=== PATIENT | female | born 1945 | race Caucasian/White ===

== ENCOUNTER 2020-05-26 13:49 | Inpatient (IN) ==
[2020-05-26] MEDS ORDERED: 0.9 % Sodium Chloride 500 ML IVC ONE (14:03)
[2020-05-26] MEDS ORDERED: Pantoprazole 40 MG VIAL IVP ONE (14:03)
[2020-05-26] MEDS ORDERED: Tetracaine/Benzocaine/Butamben 1 SPRAY AEROSOL MM ONE (14:10)
[2020-05-26 15:44] LABS: Basophils # 0.1 K/mcL (0.0-0.2); Basophils % 0.4 %; Eosinophils # 0.1 K/mcL (0.0-0.6); Eosinophils % 0.6 %; Hematocrit 43.6 % (35.3-44.9); Hemoglobin 14.7 g/dL (11.5-15.4); Immature Granulocytes % 0.3 % (0-4); Lymphocytes # 1.4 K/mcL (0.6-4.6); Lymphocytes % 11.6 %; Mean Corpuscular HGB Conc 33.7 g/dL (31.6-35.5); Mean Corpuscular Hemoglobin 32.5 pg (28.0-33.3); Mean Corpuscular Volume 96.2 fL (83.0-100.0); Monocytes # 0.9 K/mcL (0.0-1.3); Monocytes % 7.6 %; Neutrophils # 9.5 K/mcL (1.6-8.9); Platelet Count 284 K/mcL (140-400); Red Blood Count 4.53 M/mcL (3.82-4.97); Red Cell Distribution Width 12.3 % (11.5-14.5); Segmented Neutrophils % 79.5 %; White Blood Count 11.9 K/mcL (4.3-11.1)
[2020-05-26 16:02] LABS: Prothrombin Time 11.8 Seconds (9.4-12.1)
[2020-05-26 16:04] LABS: Alanine Aminotransferase 13 Units/L (7-52); Albumin 4.9 g/dL (3.5-5.7); Albumin/Globulin Ratio 1.8 (1.1-2.2); Alkaline Phosphatase 89 Units/L (34-104); Aspartate Amino Transferase 24 Units/L (13-39); BUN/Creatinine Ratio 17 (6-26); Bilirubin,Total 0.8 mg/dL (0.3-1.0); Blood Urea Nitrogen 11 mg/dL (8-23); Calcium 9.9 mg/dL (8.6-10.3); Carbon Dioxide 30 mEq/L (23-29); Chloride 98 mEq/L (98-107); Globulin 2.8 g/dL (2.4-3.5); Glucose 92 mg/dL (70-105); Osmolality,Calculated 283 (280-300); Potassium 3.6 mEq/L (3.5-5.1); Sodium 137 mEq/L (136-145); Total Protein 7.7 g/dL (6.4-8.9); eGFR For African Americans > 60 (> 60); eGFR For Non-African Americans > 60 (> 60)
[2020-05-26] MEDS ORDERED: Acetaminophen 325 MG TABLET PO PRN (17:52)
[2020-05-26] MEDS ORDERED: Ondansetron 4 MG/2 ML VIAL IVP PRN (17:52)
[2020-05-26] MEDS ORDERED: Ampicillin/Sulbactam 3,000 MG in 0.9 % Sodium Chloride Mini Bag 100 ML IVPB ONE (18:33)
[2020-05-26 19:46] LABS: Adenovirus Not Detected (Not Detect); Bordetella Pertussis Not Detected (Not Detect); Chlamydophila pneumoniae Not Detected (Not Detect); Coronavirus 229E Not Detected (Not Detect); Coronavirus HKU1 Not Detected (Not Detect); Coronavirus NL63 Not Detected (Not Detect); Coronavirus OC43 Not Detected (Not Detect); Human Metapneumovirus Not Detected (Not Detect); Human Rhinovirus/Enterovirus Not Detected (Not Detect); Influenza A Subtype 2009 H1 Not Detected (Not Detect); Influenza B Not Detected (Not Detect); Mycoplasma pneumoniae Not Detected (Not Detect); Parainfluenza Virus 1 Not Detected (Not Detect); Parainfluenza Virus 2 Not Detected (Not Detect); Parainfluenza Virus 3 Not Detected (Not Detect); Parainfluenza Virus 4 Not Detected (Not Detect); Respiratory Syncytial Virus Not Detected (Not Detect); SARS-CoV-2 Not Detected (Not Detect)
[2020-05-26 20:01] LABS: C-Reactive Protein 11 mg/L (Less than 10); Lactate Dehydrogenase 196 Units/L (140-271)
[2020-05-26] MEDS ORDERED: Isovue-370 500 ML BOTTLE IVP ONE ×2 (20:53→21:08)
[2020-05-26 21:53] LABS: Hematocrit 37.4 % (35.3-44.9)
[2020-05-26 21:54] LABS: Hemoglobin 12.6 g/dL (11.5-15.4)
[2020-05-26] MEDS ORDERED: Chloraseptic Spray 177 ML BOTTLE MM PRN (22:11)
[2020-05-27] MEDS ORDERED: Ampicillin/Sulbactam 3,000 MG in 0.9 % Sodium Chloride Mini Bag 100 ML IVPB SCH
[2020-05-27] MEDS: Ampicillin/Sulbactam 3,000 MG in 0.9 % Sodium Chloride Mini Bag 100 ML IVPB SCH ×4 (04:04→23:39)
[2020-05-27 04:30] LABS: Hematocrit 35.4 % (35.3-44.9); Hemoglobin 12.1 g/dL (11.5-15.4); Mean Corpuscular HGB Conc 34.2 g/dL (31.6-35.5); Mean Corpuscular Hemoglobin 31.9 pg (28.0-33.3); Mean Corpuscular Volume 93.4 fL (83.0-100.0); Mean Platelet Volume 9.2 fL (9.4-12.4); Platelet Count 254 K/mcL (140-400); Red Blood Count 3.79 M/mcL (3.82-4.97); Red Cell Distribution Width 12.5 % (11.5-14.5)
[2020-05-27 04:36] LABS: INR 1.3; Prothrombin Time 14.6 Seconds (9.4-12.1)
[2020-05-27 04:53] LABS: BUN/Creatinine Ratio 25 (6-26); Blood Urea Nitrogen 12 mg/dL (8-23); Calcium 8.5 mg/dL (8.6-10.3); Carbon Dioxide 26 mEq/L (23-29); Chloride 103 mEq/L (98-107); Glucose 105 mg/dL (70-105); Magnesium 1.9 mg/dL (1.6-2.6); Osmolality,Calculated 284 (280-300); Phosphorous 3.2 mg/dL (2.7-4.5); Potassium 3.4 mEq/L (3.5-5.1); Sodium 137 mEq/L (136-145); eGFR For African Americans > 60 (> 60); eGFR For Non-African Americans > 60 (> 60)
[2020-05-27] MEDS ORDERED: Potassium Chloride 20 MEQ, Lidocaine 1% 2 ML in 0.9 % Sodium Chloride 250 ML IVPB ONE (09:01)
[2020-05-27 09:53] LABS: Bilirubin,Urine Negative (Negative); Blood,Urine Moderate (Negative); Clarity,Urine Clear (Clear); Color,Urine Light-Yellow (Yellow); Glucose,Urine (UA) Normal (Normal); Ketones,Urine 20 mg/dL (Negative); Leukocyte Esterase,Urine Small (Negative); Mucus,Urine Few per lpf (None-Few); Nitrite,Urine Negative (Negative); PH,Urine 6.5 pH Units (5.0-8.0); Protein,Urine Trace mg/dL (Neg-Trace); Specific Gravity,Urine > 1.030 (1.010-1.025); Squamous Epithelial Cell,Urine Few per hpf (None-Few); Urobilinogen,Urine Normal (Normal); WBC,Urine 0-3 per hpf (0-3)
[2020-05-27] MEDS ORDERED: Lidocaine -MPF 2% 5 ML VIAL SQ ONE (13:15)
[2020-05-27] MEDS ORDERED: *HR* Propofol 200 MG/20 ML VIAL IVP ONE (13:15)
[2020-05-27] MEDS ORDERED: *HR* Propofol 500 MG/50 ML BOTTLE IVP ONE (13:15)
[2020-05-27] MEDS ORDERED: *HR* Rocuronium Bromide 50 MG/5 ML VIAL IVP ONE (13:15)
[2020-05-27] MEDS ORDERED: *HR* Succinylcholine 200 MG/10 ML VIAL IVP ONE (13:15)
[2020-05-27] MEDS ORDERED: *HR* FentaNYL (PF) 100 MCG/2 ML VIAL ONE (13:30)
[2020-05-27] MEDS ORDERED: *HR* Promethazine 25 MG/ML VIAL IVP PRN (13:35)
[2020-05-27] MEDS ORDERED: Albuterol 2.5 MG/3 ML NEBULIZER IH PRN (13:35)
[2020-05-27] MEDS ORDERED: Ondansetron 4 MG/2 ML VIAL IVP PRN (13:35)
[2020-05-27] MEDS ORDERED: *HR* FentaNYL (PF) 100 MCG/2 ML VIAL IVP PRN (13:35)
[2020-05-27] MEDS ORDERED: *HR* EPINEPHrine 1 MG/10 ML SYRINGE INTRATRACH PRN (14:10)
[2020-05-27 16:32] LABS: Hematocrit 38.7 % (35.3-44.9); Hemoglobin 12.4 g/dL (11.5-15.4)
[2020-05-27] MEDS: MethylPREDNISolone 40 MG/ML VIAL IVP SCH ×2 (17:11→17:15)
[2020-05-27] MEDS ORDERED: MethylPREDNISolone 40 MG/ML VIAL IVP SCH (18:00)
[2020-05-27 22:53] LABS: Hematocrit 38.8 % (35.3-44.9); Hemoglobin 13.2 g/dL (11.5-15.4)
[2020-05-28 01:13] LABS: Basophils % 0.3 %; Hematocrit 37.4 % (35.3-44.9); Hemoglobin 12.3 g/dL (11.5-15.4); Immature Granulocytes % 0.8 % (0-4); Lymphocytes # 0.9 K/mcL (0.6-4.6); Lymphocytes % 13.6 %; Mean Corpuscular HGB Conc 32.9 g/dL (31.6-35.5); Mean Corpuscular Hemoglobin 31.4 pg (28.0-33.3); Mean Corpuscular Volume 95.4 fL (83.0-100.0); Mean Platelet Volume 9.2 fL (9.4-12.4); Monocytes # 0.1 K/mcL (0.0-1.3); Monocytes % 0.9 %; Neutrophils # 5.6 K/mcL (1.6-8.9); Platelet Count 228 K/mcL (140-400); Red Blood Count 3.92 M/mcL (3.82-4.97); Red Cell Distribution Width 12.3 % (11.5-14.5); Segmented Neutrophils % 84.4 %; White Blood Count 6.6 K/mcL (4.3-11.1)
[2020-05-28 01:38] LABS: BUN/Creatinine Ratio 33 (6-26); Blood Urea Nitrogen 14 mg/dL (8-23); Calcium 8.6 mg/dL (8.6-10.3); Carbon Dioxide 27 mEq/L (23-29); Chloride 103 mEq/L (98-107); Glucose 141 mg/dL (70-105); Osmolality,Calculated 287 (280-300); Potassium 3.5 mEq/L (3.5-5.1); Sodium 137 mEq/L (136-145); eGFR For African Americans > 60 (> 60); eGFR For Non-African Americans > 60 (> 60)
[2020-05-28] MEDS: MethylPREDNISolone 40 MG/ML VIAL IVP SCH ×2 (05:26→16:25)
[2020-05-28] MEDS: Ampicillin/Sulbactam 3,000 MG in 0.9 % Sodium Chloride Mini Bag 100 ML IVPB SCH ×4 (05:27→21:38)
[2020-05-28] MEDS ORDERED: Aspirin Enteric Coated 81 MG Tablet PO SCH (09:00)
[2020-05-28] MEDS ORDERED: Dexamethasone 4 MG/ML VIAL ONE (10:26)
[2020-05-28] MEDS ORDERED: Lidocaine -MPF 2% 2 ML VIAL ONE (10:26)
[2020-05-28] MEDS ORDERED: Ondansetron 4 MG/2 ML VIAL ONE (10:26)
[2020-05-28] MEDS ORDERED: *HR* Propofol 200 MG/20 ML VIAL IVP ONE (10:26)
[2020-05-28] MEDS ORDERED: *HR* Succinylcholine 200 MG/10 ML VIAL IVP ONE (10:27)
[2020-05-28] MEDS ORDERED: Lidocaine -MPF 4% 5 ML AMPUL ONE (10:28)
[2020-05-28] MEDS ORDERED: *HR* EPINEPHrine 1 MG/10 ML SYRINGE INTRATRACH PRN (10:53)
[2020-05-28] MEDS ORDERED: EPHEDrine 50 MG/ML VIAL ONE (11:02)
[2020-05-28] MEDS: Budesonide/Formoterol 80/4.5 1 PUFF INH IH SCH ×2 (11:31→19:59)
[2020-05-28] MEDS: Ascorbic Acid 500 MG TABLET PO SCH (13:04)
[2020-05-28] MEDS: amLODIPine 5 MG TABLET PO SCH (13:04)
[2020-05-29 01:37] LABS: Basophils % 0.1 %; Hematocrit 35.6 % (35.3-44.9); Hemoglobin 11.6 g/dL (11.5-15.4); Immature Granulocytes % 0.8 % (0-4); Lymphocytes # 0.9 K/mcL (0.6-4.6); Lymphocytes % 7.5 %; Mean Corpuscular HGB Conc 32.6 g/dL (31.6-35.5); Mean Corpuscular Hemoglobin 31.4 pg (28.0-33.3); Mean Corpuscular Volume 96.5 fL (83.0-100.0); Mean Platelet Volume 9.6 fL (9.4-12.4); Monocytes # 0.5 K/mcL (0.0-1.3); Monocytes % 3.9 %; Neutrophils # 10.4 K/mcL (1.6-8.9); Platelet Count 252 K/mcL (140-400); Red Blood Count 3.69 M/mcL (3.82-4.97); Red Cell Distribution Width 12.3 % (11.5-14.5); Segmented Neutrophils % 87.7 %
[2020-05-29 01:38] LABS: White Blood Count 11.8 K/mcL (4.3-11.1)
[2020-05-29 01:55] LABS: BUN/Creatinine Ratio 43 (6-26); Blood Urea Nitrogen 23 mg/dL (8-23); Calcium 8.7 mg/dL (8.6-10.3); Carbon Dioxide 27 mEq/L (23-29); Chloride 102 mEq/L (98-107); Glucose 149 mg/dL (70-105); Osmolality,Calculated 288 (280-300); Potassium 3.6 mEq/L (3.5-5.1); Sodium 136 mEq/L (136-145); eGFR For African Americans > 60 (> 60); eGFR For Non-African Americans > 60 (> 60)
[2020-05-29] MEDS: MethylPREDNISolone 40 MG/ML VIAL IVP SCH ×2 (05:14→19:44)
[2020-05-29] MEDS: Ampicillin/Sulbactam 3,000 MG in 0.9 % Sodium Chloride Mini Bag 100 ML IVPB SCH ×4 (05:14→21:36)
[2020-05-29] MEDS: Budesonide/Formoterol 80/4.5 1 PUFF INH IH SCH ×2 (07:37→20:14)
[2020-05-29] MEDS: Ascorbic Acid 500 MG TABLET PO SCH (08:37)
[2020-05-29] MEDS: amLODIPine 5 MG TABLET PO SCH (08:37)
[2020-05-30] MEDS: Ampicillin/Sulbactam 3,000 MG in 0.9 % Sodium Chloride Mini Bag 100 ML IVPB SCH (03:42)
[2020-05-30 05:35] LABS: Hemoglobin 11.9 g/dL (11.5-15.4); Immature Granulocytes % 0.8 % (0-4); Lymphocytes # 0.8 K/mcL (0.6-4.6); Lymphocytes % 8.9 %; Mean Corpuscular Hemoglobin 32.4 pg (28.0-33.3); Mean Corpuscular Volume 95.4 fL (83.0-100.0); Mean Platelet Volume 9.4 fL (9.4-12.4); Monocytes # 0.3 K/mcL (0.0-1.3); Monocytes % 4.1 %; Neutrophils # 7.2 K/mcL (1.6-8.9); Platelet Count 261 K/mcL (140-400); Red Blood Count 3.67 M/mcL (3.82-4.97); Red Cell Distribution Width 12.4 % (11.5-14.5); Segmented Neutrophils % 86.2 %; White Blood Count 8.4 K/mcL (4.3-11.1)
[2020-05-30 05:53] LABS: BUN/Creatinine Ratio 39 (6-26); Blood Urea Nitrogen 19 mg/dL (8-23); Calcium 8.3 mg/dL (8.6-10.3); Carbon Dioxide 29 mEq/L (23-29); Chloride 105 mEq/L (98-107); Glucose 139 mg/dL (70-105); Osmolality,Calculated 295 (280-300); Potassium 3.5 mEq/L (3.5-5.1); Sodium 140 mEq/L (136-145); eGFR For African Americans > 60 (> 60); eGFR For Non-African Americans > 60 (> 60)
[2020-05-30] MEDS: MethylPREDNISolone 40 MG/ML VIAL IVP SCH (06:02)
[2020-05-30] MEDS: Budesonide/Formoterol 80/4.5 1 PUFF INH IH SCH (07:11)
[2020-05-30] MEDS: amLODIPine 5 MG TABLET PO SCH (08:28)
[2020-05-30] MEDS: Ascorbic Acid 500 MG TABLET PO SCH (08:28)
[2020-05-30 09:14] LABS: ANA HEp-2 IgG IFA DETECTED (<1:80)
[2020-05-30 09:15] LABS: Anti Nuclear Ab Pattern SPECKLED
[2020-05-30 10:56] VITALS: BP 123/72
[2020-05-30] MEDS ORDERED: FLU Vac QV 20-21 (6Month+)/PF 0.5 ML SYRINGE IM ONE (12:10)
[2020-05-30 14:26] LABS: ANA IgG by ELISA DETECTED (None Detected)
[2020-05-30 14:39] LABS: Serine Protease-3 Antibody 1 AU/mL (0-19)
[2020-05-30 16:04] LABS: Influenza A PCR Body Fluid NOT DETECTED; Influenza B PCR Body Fluid NOT DETECTED; RVP Body Fluid Source BAL
[2020-05-30 17:53] LABS: Influenza A PCR Body Fluid NOT DETECTED; Influenza B PCR Body Fluid NOT DETECTED; RVP Body Fluid Source BAL
[2020-05-30 18:59] LABS: A.galactomannan Ag Index 0.05
[2020-05-31 08:09] LABS: RSV PCR Body Fluid NOT DETECTED
[2020-06-02 13:30] LABS: HSV Source BAL LLL; HSV Source BAL LUL
== END 2020-05-30 13:16 | disposition home or self-care (01) | DRG 204 ==
LOC: EMEROOARM 13:49 → 3ANU 13:49 → SUATTDRO 19:50 → 3ANU 20:32 → 2NNU 05-27 14:47 → 3ANU 05-29 13:47 → 3BNU 05-29 18:28 → 3ANU 05-29 18:37
PROVIDERS: ADMIT Internal Medicine; ATTEND Student in an Organized Health Care Education/Training Program
PROC: ENDOBRF (2020-05-28 18:30)

== ENCOUNTER 2020-06-04 08:15 | Inpatient (IN) ==
[2020-06-04] MEDS ORDERED: CeFAZolin Syr 2,000MG/20 ML 2,000 MG/20 ML SYRINGE IVPB ONE (08:59)
[2020-06-04] MEDS ORDERED: Ringers Solution, Lactated 1,000 ML IVC SCH (09:00)
[2020-06-04] MEDS ORDERED: Acetaminophen IV 1,000 MG/100 ML INFUS..BTL IVPB ONE (09:13)
[2020-06-04] MEDS ORDERED: Pregabalin 75 MG CAPSULE PO ONE (09:13)
[2020-06-04] MEDS ORDERED: Famotidine 20 MG/2 ML VIAL IVP ONE (09:13)
[2020-06-04] MEDS ORDERED: Albuterol 2.5 MG/3 ML NEBULIZER IH PRN (09:13)
[2020-06-04] MEDS ORDERED: *HR* Promethazine 25 MG/ML VIAL IVP PRN (09:13)
[2020-06-04] MEDS ORDERED: *HR* FentaNYL (PF) 100 MCG/2 ML VIAL IVP PRN (09:13)
[2020-06-04] MEDS ORDERED: Ketorolac 15 MG/ML VIAL IVP PRN (09:13)
[2020-06-04] MEDS ORDERED: *HR* OxyCODONE Immed Rel 5 MG TABLET PO PRN (09:13)
[2020-06-04] MEDS ORDERED: Ondansetron 4 MG/2 ML VIAL IVP PRN (09:13)
[2020-06-04] MEDS ORDERED: Lidocaine -MPF 4% 5 ML AMPUL ONE (10:02)
[2020-06-04] MEDS ORDERED: Heparin 1,000 UNITS/500 mL 500 ML ONE (10:04)
[2020-06-04] MEDS ORDERED: *HR* Propofol 200 MG/20 ML VIAL IVP ONE (10:05)
[2020-06-04] MEDS ORDERED: *HR* FentaNYL (PF) 100 MCG/2 ML VIAL ONE (10:05)
[2020-06-04] MEDS ORDERED: Dexamethasone 4 MG/ML VIAL ONE (10:06)
[2020-06-04] MEDS ORDERED: *HR* Rocuronium Bromide 50 MG/5 ML VIAL ONE ×2 (10:06→12:15)
[2020-06-04] MEDS ORDERED: Ondansetron 4 MG/2 ML VIAL ONE (10:06)
[2020-06-04] MEDS ORDERED: Lidocaine -MPF 2% 2 ML VIAL ONE ×2 (10:06→10:39)
[2020-06-04 10:16] LABS: Adenovirus Not Detected (Not Detect); Bordetella Pertussis Not Detected (Not Detect); Chlamydophila pneumoniae Not Detected (Not Detect); Coronavirus 229E Not Detected (Not Detect); Coronavirus HKU1 Not Detected (Not Detect); Coronavirus NL63 Not Detected (Not Detect); Coronavirus OC43 Not Detected (Not Detect); Human Metapneumovirus Not Detected (Not Detect); Human Rhinovirus/Enterovirus Not Detected (Not Detect); Influenza A Subtype 2009 H1 Not Detected (Not Detect); Influenza B Not Detected (Not Detect); Mycoplasma pneumoniae Not Detected (Not Detect); Parainfluenza Virus 1 Not Detected (Not Detect); Parainfluenza Virus 2 Not Detected (Not Detect); Parainfluenza Virus 3 Not Detected (Not Detect); Parainfluenza Virus 4 Not Detected (Not Detect); Respiratory Syncytial Virus Not Detected (Not Detect); SARS-CoV-2 Not Detected (Not Detect)
[2020-06-04] MEDS ORDERED: *HR* EPINEPHrine 30 MG/30 ML MDV ONE (10:44)
[2020-06-04] MEDS ORDERED: *HR* HYDROMORPHONE 2 MG/ML VIAL ONE (11:53)
[2020-06-04] MEDS ORDERED: *HR* PHENYLEPHRINE 1,000 MCG/10 ML SYRINGE IVP ONE (12:35)
[2020-06-04] MEDS ORDERED: EPHEDrine 50 MG/ML VIAL ONE (12:38)
[2020-06-04] MEDS ORDERED: FluocinoNIDE 0.05% CRM 15 GM TUBE TP PRN (14:13)
[2020-06-04] MEDS ORDERED: Naloxone 0.4 MG/ML INJ IVP PRN (14:13)
[2020-06-04] MEDS ORDERED: 0.9 % Sodium Chloride 1,000 ML ONE (14:19)
[2020-06-04] MEDS: 0.9 % Sodium Chloride 1,000 ML IVC SCH (14:20)
[2020-06-04] MEDS: Ipratropium/Albuterol Neb 3 ML IH SCH ×3 (15:36→23:58)
[2020-06-04] MEDS: *HR* Heparin 5,000 UNIT/ML VIAL SQ SCH ×2 (18:21→21:51)
[2020-06-04] MEDS: Ketorolac 15 MG/ML VIAL IVP SCH (18:21)
[2020-06-04] MEDS: Gabapentin 300 MG CAPSULE PO SCH ×2 (18:21→21:51)
[2020-06-04] MEDS: Sennosides/Docusate Sodium TABLET PO SCH (21:51)
[2020-06-04] MEDS: Famotidine 20 MG TABLET PO SCH (21:51)
[2020-06-05] MEDS: *HR* HYDROcodone/Acet 5/325 mg TABLET PO PRN (00:37)
[2020-06-05] MEDS: Ketorolac 15 MG/ML VIAL IVP SCH ×4 (00:37→16:43)
[2020-06-05] MEDS: 0.9 % Sodium Chloride 1,000 ML IVC SCH (03:03)
[2020-06-05] MEDS: Ipratropium/Albuterol Neb 3 ML IH SCH ×6 (03:50→23:49)
[2020-06-05 05:02] LABS: Hematocrit 35.7 % (35.3-44.9); Hemoglobin 11.4 g/dL (11.5-15.4); Mean Corpuscular HGB Conc 31.9 g/dL (31.6-35.5); Mean Corpuscular Hemoglobin 31.7 pg (28.0-33.3); Mean Corpuscular Volume 99.2 fL (83.0-100.0); Mean Platelet Volume 9.2 fL (9.4-12.4); Platelet Count 287 K/mcL (140-400); Red Cell Distribution Width 12.8 % (11.5-14.5)
[2020-06-05 05:03] LABS: White Blood Count 14.4 K/mcL (4.3-11.1)
[2020-06-05 05:11] LABS: % Iron Saturation 6 % (15-50); BUN/Creatinine Ratio 28 (6-26); Blood Urea Nitrogen 15 mg/dL (8-23); Calcium 7.8 mg/dL (8.6-10.3); Carbon Dioxide 29 mEq/L (23-29); Chloride 103 mEq/L (98-107); Glucose 164 mg/dL (70-105); Iron 13 mcg/dL (50-170); Magnesium 1.9 mg/dL (1.6-2.6); Osmolality,Calculated 290 (280-300); Potassium 4.3 mEq/L (3.5-5.1); Sodium 138 mEq/L (136-145); Transferrin 146 mg/dL (203-362); eGFR For African Americans > 60 (> 60); eGFR For Non-African Americans > 60 (> 60)
[2020-06-05] MEDS: *HR* Heparin 5,000 UNIT/ML VIAL SQ SCH ×3 (06:34→20:39)
[2020-06-05] MEDS: Budesonide/Formoterol 80/4.5 1 PUFF INH IH SCH ×2 (07:40→19:26)
[2020-06-05] MEDS: Aspirin Enteric Coated 81 MG Tablet PO SCH (07:49)
[2020-06-05] MEDS: Gabapentin 300 MG CAPSULE PO SCH ×3 (07:49→20:39)
[2020-06-05] MEDS: Sennosides/Docusate Sodium TABLET PO SCH ×2 (07:49→20:39)
[2020-06-05] MEDS: amLODIPine 5 MG TABLET PO SCH (07:49)
[2020-06-05] MEDS: Famotidine 20 MG TABLET PO SCH ×2 (07:49→20:39)
[2020-06-05] MEDS ORDERED: Iron Sucrose Complex 400 MG in 0.9 % Sodium Chloride 250 ML IVPB ONE (10:19)
[2020-06-06] MEDS: Ketorolac 15 MG/ML VIAL IVP SCH ×4 (01:15→16:27)
[2020-06-06] MEDS: Ipratropium/Albuterol Neb 3 ML IH SCH ×5 (04:14→20:10)
[2020-06-06] MEDS: *HR* Heparin 5,000 UNIT/ML VIAL SQ SCH ×3 (05:09→19:54)
[2020-06-06] MEDS: Budesonide/Formoterol 80/4.5 1 PUFF INH IH SCH ×2 (07:33→22:13)
[2020-06-06] MEDS: amLODIPine 5 MG TABLET PO SCH (07:54)
[2020-06-06] MEDS: Aspirin Enteric Coated 81 MG Tablet PO SCH (07:54)
[2020-06-06] MEDS: Gabapentin 300 MG CAPSULE PO SCH ×3 (07:54→19:54)
[2020-06-06] MEDS: Sennosides/Docusate Sodium TABLET PO SCH ×2 (07:55→19:55)
[2020-06-06] MEDS: Famotidine 20 MG TABLET PO SCH ×2 (07:55→19:54)
[2020-06-06] MEDS: polyethylene glycoL 3350 17 GM POWD.PACK PO SCH (17:14)
[2020-06-07] MEDS: Ipratropium/Albuterol Neb 3 ML IH SCH ×7 (00:14→23:26)
[2020-06-07 02:21] LABS: Hemoglobin 10.2 g/dL (11.5-15.4); Mean Corpuscular HGB Conc 32.9 g/dL (31.6-35.5); Mean Corpuscular Hemoglobin 31.8 pg (28.0-33.3); Mean Corpuscular Volume 96.6 fL (83.0-100.0); Mean Platelet Volume 9.6 fL (9.4-12.4); Platelet Count 276 K/mcL (140-400); Red Blood Count 3.21 M/mcL (3.82-4.97); Red Cell Distribution Width 13.1 % (11.5-14.5); White Blood Count 11.3 K/mcL (4.3-11.1)
[2020-06-07 02:44] LABS: BUN/Creatinine Ratio 33 (6-26); Blood Urea Nitrogen 16 mg/dL (8-23); Calcium 8.3 mg/dL (8.6-10.3); Carbon Dioxide 30 mEq/L (23-29); Chloride 100 mEq/L (98-107); Glucose 114 mg/dL (70-105); Magnesium 2.1 mg/dL (1.6-2.6); Osmolality,Calculated 280 (280-300); Sodium 134 mEq/L (136-145); eGFR For African Americans > 60 (> 60); eGFR For Non-African Americans > 60 (> 60)
[2020-06-07] MEDS: Ketorolac 15 MG/ML VIAL IVP SCH ×2 (05:54)
[2020-06-07] MEDS: *HR* Heparin 5,000 UNIT/ML VIAL SQ SCH ×3 (05:55→21:15)
[2020-06-07] MEDS: Sennosides/Docusate Sodium TABLET PO SCH ×2 (07:09→21:14)
[2020-06-07] MEDS: Aspirin Enteric Coated 81 MG Tablet PO SCH (07:09)
[2020-06-07] MEDS: Gabapentin 300 MG CAPSULE PO SCH ×3 (07:09→21:14)
[2020-06-07] MEDS: Famotidine 20 MG TABLET PO SCH ×2 (07:09→21:14)
[2020-06-07] MEDS: polyethylene glycoL 3350 17 GM POWD.PACK PO SCH (07:09)
[2020-06-07] MEDS: amLODIPine 5 MG TABLET PO SCH (07:09)
[2020-06-07] MEDS: Budesonide/Formoterol 80/4.5 1 PUFF INH IH SCH ×2 (07:16→20:12)
[2020-06-07] MEDS: *HR* HYDROcodone/Acet 5/325 mg TABLET PO PRN (21:44)
[2020-06-07] MEDS ORDERED: Ketorolac 15 MG/ML VIAL IVP ONE (23:42)
[2020-06-08] MEDS ORDERED: Ketorolac 15 MG/ML VIAL IVP SCH
[2020-06-08] MEDS: Ipratropium/Albuterol Neb 3 ML IH SCH ×6 (03:19→23:48)
[2020-06-08] MEDS: *HR* Heparin 5,000 UNIT/ML VIAL SQ SCH ×3 (05:48→20:11)
[2020-06-08] MEDS: Budesonide/Formoterol 80/4.5 1 PUFF INH IH SCH ×2 (07:51→20:14)
[2020-06-08] MEDS: Aspirin Enteric Coated 81 MG Tablet PO SCH (08:11)
[2020-06-08] MEDS: amLODIPine 5 MG TABLET PO SCH (08:12)
[2020-06-08] MEDS: Gabapentin 300 MG CAPSULE PO SCH ×3 (08:12→20:11)
[2020-06-08] MEDS: polyethylene glycoL 3350 17 GM POWD.PACK PO SCH (08:12)
[2020-06-08] MEDS: Famotidine 20 MG TABLET PO SCH ×2 (08:12→20:11)
[2020-06-08] MEDS: Sennosides/Docusate Sodium TABLET PO SCH ×2 (08:12→20:11)
[2020-06-08] MEDS: *HR* HYDROcodone/Acet 5/325 mg TABLET PO PRN ×2 (08:28→14:26)
[2020-06-09] MEDS: Ipratropium/Albuterol Neb 3 ML IH SCH ×6 (03:52→23:30)
[2020-06-09] MEDS: *HR* Heparin 5,000 UNIT/ML VIAL SQ SCH ×3 (05:34→20:42)
[2020-06-09] MEDS: Budesonide/Formoterol 80/4.5 1 PUFF INH IH SCH ×2 (07:19→20:00)
[2020-06-09] MEDS: Aspirin Enteric Coated 81 MG Tablet PO SCH (08:05)
[2020-06-09] MEDS: polyethylene glycoL 3350 17 GM POWD.PACK PO SCH (08:05)
[2020-06-09] MEDS: amLODIPine 5 MG TABLET PO SCH (08:05)
[2020-06-09] MEDS: Gabapentin 300 MG CAPSULE PO SCH ×3 (08:05→20:42)
[2020-06-09] MEDS: Sennosides/Docusate Sodium TABLET PO SCH ×2 (08:05→20:42)
[2020-06-09] MEDS: Famotidine 20 MG TABLET PO SCH ×2 (08:05→20:42)
[2020-06-09] MEDS: *HR* HYDROcodone/Acet 5/325 mg TABLET PO PRN (23:30)
[2020-06-10] MEDS: Ibuprofen 200 MG TABLET PO PRN (00:50)
[2020-06-10] MEDS: Ipratropium/Albuterol Neb 3 ML IH SCH ×5 (03:57→19:44)
[2020-06-10 04:20] LABS: Hematocrit 31.2 % (35.3-44.9); Hemoglobin 10.2 g/dL (11.5-15.4); Mean Corpuscular HGB Conc 32.7 g/dL (31.6-35.5); Mean Corpuscular Hemoglobin 32.6 pg (28.0-33.3); Mean Corpuscular Volume 99.7 fL (83.0-100.0); Mean Platelet Volume 9.2 fL (9.4-12.4); Platelet Count 342 K/mcL (140-400); Red Blood Count 3.13 M/mcL (3.82-4.97); Red Cell Distribution Width 13.5 % (11.5-14.5); White Blood Count 10.9 K/mcL (4.3-11.1)
[2020-06-10 04:36] LABS: BUN/Creatinine Ratio 28 (6-26); Blood Urea Nitrogen 15 mg/dL (8-23); Calcium 8.9 mg/dL (8.6-10.3); Carbon Dioxide 30 mEq/L (23-29); Chloride 101 mEq/L (98-107); Glucose 105 mg/dL (70-105); Magnesium 2.1 mg/dL (1.6-2.6); Osmolality,Calculated 281 (280-300); Potassium 4.5 mEq/L (3.5-5.1); Sodium 135 mEq/L (136-145); eGFR For African Americans > 60 (> 60); eGFR For Non-African Americans > 60 (> 60)
[2020-06-10] MEDS: *HR* Heparin 5,000 UNIT/ML VIAL SQ SCH ×3 (06:20→20:39)
[2020-06-10] MEDS: Budesonide/Formoterol 80/4.5 1 PUFF INH IH SCH ×2 (07:28→19:44)
[2020-06-10] MEDS: Famotidine 20 MG TABLET PO SCH ×2 (08:31→20:39)
[2020-06-10] MEDS: Aspirin Enteric Coated 81 MG Tablet PO SCH (08:31)
[2020-06-10] MEDS: Gabapentin 300 MG CAPSULE PO SCH ×3 (08:31→20:39)
[2020-06-10] MEDS: amLODIPine 5 MG TABLET PO SCH (08:31)
[2020-06-10] MEDS: Sennosides/Docusate Sodium TABLET PO SCH (08:31)
[2020-06-10] MEDS: polyethylene glycoL 3350 17 GM POWD.PACK PO SCH (08:32)
[2020-06-10] MEDS: *HR* HYDROcodone/Acet 5/325 mg TABLET PO PRN (19:10)
[2020-06-11] MEDS: Ipratropium/Albuterol Neb 3 ML IH SCH ×7 (01:22→23:13)
[2020-06-11] MEDS: Ibuprofen 200 MG TABLET PO PRN (01:54)
[2020-06-11] MEDS: *HR* Heparin 5,000 UNIT/ML VIAL SQ SCH ×3 (05:54→20:55)
[2020-06-11] MEDS: polyethylene glycoL 3350 17 GM POWD.PACK PO SCH (07:15)
[2020-06-11] MEDS: Famotidine 20 MG TABLET PO SCH ×2 (07:15→20:55)
[2020-06-11] MEDS: Aspirin Enteric Coated 81 MG Tablet PO SCH (07:15)
[2020-06-11] MEDS: amLODIPine 5 MG TABLET PO SCH (07:16)
[2020-06-11] MEDS: Gabapentin 300 MG CAPSULE PO SCH ×3 (07:16→20:55)
[2020-06-11] MEDS: Budesonide/Formoterol 80/4.5 1 PUFF INH IH SCH ×2 (08:07→19:51)
[2020-06-11] MEDS: *HR* HYDROcodone/Acet 5/325 mg TABLET PO PRN ×3 (10:52→19:17)
[2020-06-12] MEDS: Ibuprofen 200 MG TABLET PO PRN (02:10)
[2020-06-12] MEDS: Ipratropium/Albuterol Neb 3 ML IH SCH ×3 (03:41→11:48)
[2020-06-12] MEDS: *HR* Heparin 5,000 UNIT/ML VIAL SQ SCH ×3 (06:05→20:33)
[2020-06-12] MEDS: polyethylene glycoL 3350 17 GM POWD.PACK PO SCH (07:56)
[2020-06-12] MEDS: Aspirin Enteric Coated 81 MG Tablet PO SCH (07:56)
[2020-06-12] MEDS: amLODIPine 5 MG TABLET PO SCH (07:56)
[2020-06-12] MEDS: Gabapentin 300 MG CAPSULE PO SCH ×3 (07:56→20:33)
[2020-06-12] MEDS: Famotidine 20 MG TABLET PO SCH ×2 (07:56→20:33)
[2020-06-12] MEDS: Budesonide/Formoterol 80/4.5 1 PUFF INH IH SCH ×2 (07:57→20:48)
[2020-06-12] MEDS: [UNRECOGNIZED DRUG - OTHER] PO SCH (14:00)
[2020-06-13] MEDS: *HR* Heparin 5,000 UNIT/ML VIAL SQ SCH (06:06)
[2020-06-13 07:03] VITALS: BP 116/54
[2020-06-13] MEDS: Aspirin Enteric Coated 81 MG Tablet PO SCH (07:51)
[2020-06-13] MEDS: amLODIPine 5 MG TABLET PO SCH (07:51)
[2020-06-13] MEDS: Gabapentin 300 MG CAPSULE PO SCH (07:51)
[2020-06-13] MEDS: polyethylene glycoL 3350 17 GM POWD.PACK PO SCH (07:51)
[2020-06-13] MEDS: Famotidine 20 MG TABLET PO SCH (07:51)
[2020-06-13] MEDS: [UNRECOGNIZED DRUG - OTHER] PO SCH (07:52)
[2020-06-13] MEDS: Budesonide/Formoterol 80/4.5 1 PUFF INH IH SCH (10:17)
== END 2020-06-13 12:05 | disposition home or self-care (01) | DRG 164 ==
LOC: SAMDAY 08:15 → 2NNU 14:12
PROVIDERS: ADMIT Thoracic Surgery (Cardiothoracic Vascular Surgery); ATTEND Thoracic Surgery (Cardiothoracic Vascular Surgery)

== ENCOUNTER 2021-01-28 09:24 | Inpatient (IN) ==
[~2021-01-28 09:24] MED LIST: *HR* FentaNYL (PF) 100 MCG/2 ML VIAL ONE; *HR* Propofol 200 MG/20 ML VIAL IVP ONE; *HR* Rocuronium Bromide 50 MG/5 ML VIAL ONE; *HR* Succinylcholine 200 MG/10 ML VIAL IVP ONE; EPHEDrine 50 MG/ML VIAL ONE; Lidocaine -MPF 2% 2 ML VIAL ONE; Lidocaine HCL 4 ML Topical Solution (Laryng-O-Jet Kit Sterile Pak) TP ONE; Ondansetron 4 MG/2 ML VIAL ONE
[2021-01-28] MEDS ORDERED: CeFAZolin Syr 2,000MG/20 ML 2,000 MG/20 ML SYRINGE IVPB ONE (09:52)
[2021-01-28] MEDS ORDERED: Ringers Solution, Lactated 1,000 ML IVC SCH (10:00)
[2021-01-28] MEDS ORDERED: *HR* HYDROmorphone PF 0.5 MG/0.5 ML SYRINGE IVP PRN (10:03)
[2021-01-28] MEDS ORDERED: Ondansetron 4 MG/2 ML VIAL IVP PRN ×2 (10:03→15:31)
[2021-01-28] MEDS ORDERED: Acetaminophen IV 1,000 MG/100 ML BAG IVPB ONE (10:22)
[2021-01-28] MEDS ORDERED: Heparin 1,000 UNITS/500 mL 500 ML ONE (10:46)
[2021-01-28] MEDS ORDERED: *HR* Phenylephrine 10 MG/ML VIAL ONE (11:53)
[2021-01-28] MEDS ORDERED: *HR* Rocuronium Bromide 50 MG/5 ML VIAL ONE ×2 (12:19→14:38)
[2021-01-28] MEDS ORDERED: *HR* Vasopressin 20 UNIT/ML VIAL ONE (13:16)
[2021-01-28] MEDS ORDERED: Albumin Human 5% 12.5 GM/250 ML IV.SOLN ONE (13:16)
[2021-01-28] MEDS ORDERED: Albumin Human 5% 25.0 GM/500 ML IV.SOLN ONE (14:13)
[2021-01-28] MEDS ORDERED: Ketorolac 30 MG/ML VIAL ONE (14:27)
[2021-01-28] MEDS ORDERED: Sugammadex Sodium 200 MG/2 ML VIAL IV ONE (14:37)
[2021-01-28 14:43] LABS: ABG Base Excess 1 mEq/L (-2 to 3); ABG Chloride 103 mEq/L (98-107); ABG Glucose 123 mg/dL (60-95); ABG HCO3 25 mEq/L (21-27); ABG Ionized Calcium 1.04 mmol/L (1.15-1.35); ABG Oxygen Saturation 100 % (95-98); ABG PCO2 36 mmHg (35-45); ABG PH 7.44 pH Units (7.32-7.45); ABG PO2 327 mmHg (85-104); ABG TCO2 26 mEq/L (20-26)
[2021-01-28] MEDS ORDERED: *HR* HYDROcodone/Acet 5/325 mg TABLET PO PRN (15:31)
[2021-01-28] MEDS ORDERED: Amiodarone Premix 360 MG/200 ML BAG IVC ONE (15:43)
[2021-01-28] MEDS ORDERED: Amiodarone Premix 150 MG/100 ML BAG IVPB ONE (15:43)
[2021-01-28] MEDS: 0.9 % Sodium Chloride 1,000 ML IVC SCH (16:02)
[2021-01-28] MEDS ORDERED: 0.9 % Sodium Chloride 250 ML ONE (16:29)
[2021-01-28] MEDS: Ketorolac 15 MG/ML VIAL IVP SCH ×2 (17:26→23:07)
[2021-01-28] MEDS: ceFAZolin 1,000 MG in Water for inj. (sterile) 10 ML IVP SCH (17:39)
[2021-01-28 18:11] LABS: Hematocrit 30.5 % (35.3-44.9); Hemoglobin 10.4 g/dL (11.5-15.4); Mean Corpuscular HGB Conc 34.1 g/dL (31.6-35.5); Mean Corpuscular Hemoglobin 32.1 pg (28.0-33.3); Mean Corpuscular Volume 94.1 fL (83.0-100.0); Platelet Count 172 K/mcL (140-400); Red Blood Count 3.24 M/mcL (3.82-4.97); Red Cell Distribution Width 13.2 % (11.5-14.5); White Blood Count 9.6 K/mcL (4.3-11.1)
[2021-01-28] MEDS: Ipratropium/Albuterol Neb 3 ML IH SCH ×3 (18:29→23:38)
[2021-01-28 18:34] LABS: Magnesium 1.5 mg/dL (1.6-2.6); Phosphorous 3.6 mg/dL (2.7-4.5)
[2021-01-28 18:35] LABS: BUN/Creatinine Ratio 23 (6-26); Blood Urea Nitrogen 12 mg/dL (8-23); Calcium 7.5 mg/dL (8.6-10.3); Carbon Dioxide 26 mEq/L (23-29); Chloride 107 mEq/L (98-107); Glucose 160 mg/dL (70-105); Osmolality,Calculated 291 (280-300); Potassium 3.7 mEq/L (3.5-5.1); Sodium 139 mEq/L (136-145); eGFR For African Americans > 60 (> 60); eGFR For Non-African Americans > 60 (> 60)
[2021-01-28] MEDS ORDERED: Calcium Gluconate 1gm/50mL 1 GM/50 ML BAG IVPB ONE ×2 (19:00→20:00)
[2021-01-28] MEDS: *HR* OxyCODONE Oral Soln 5 MG/5 ML UD.LIQ PO PRN (19:21)
[2021-01-28] MEDS: Gabapentin 300 MG CAPSULE PO SCH (19:28)
[2021-01-28] MEDS ORDERED: Amiodarone Premix 360 MG/200 ML BAG IVC SCH (21:43)
[2021-01-28] MEDS: *HR* Heparin 5,000 UNIT/ML VIAL SQ SCH (23:08)
[2021-01-29] MEDS: *HR* OxyCODONE Oral Soln 5 MG/5 ML UD.LIQ PO PRN ×2 (01:02→09:01)
[2021-01-29] MEDS: ceFAZolin 1,000 MG in Water for inj. (sterile) 10 ML IVP SCH ×3 (02:25→17:28)
[2021-01-29] MEDS: Ipratropium/Albuterol Neb 3 ML IH SCH ×6 (03:18→23:26)
[2021-01-29 03:44] LABS: Hematocrit 30.9 % (35.3-44.9); Mean Corpuscular HGB Conc 35.6 g/dL (31.6-35.5); Mean Corpuscular Hemoglobin 32.9 pg (28.0-33.3); Mean Corpuscular Volume 92.5 fL (83.0-100.0); Mean Platelet Volume 9.5 fL (9.4-12.4); Platelet Count 185 K/mcL (140-400); Red Blood Count 3.34 M/mcL (3.82-4.97); Red Cell Distribution Width 13.3 % (11.5-14.5); White Blood Count 12.4 K/mcL (4.3-11.1)
[2021-01-29 04:05] LABS: BUN/Creatinine Ratio 25 (6-26); Blood Urea Nitrogen 14 mg/dL (8-23); Calcium 7.9 mg/dL (8.6-10.3); Carbon Dioxide 24 mEq/L (23-29); Chloride 105 mEq/L (98-107); Glucose 203 mg/dL (70-105); Magnesium 2.7 mg/dL (1.6-2.6); Osmolality,Calculated 292 (280-300); Phosphorous 3.2 mg/dL (2.7-4.5); Potassium 3.9 mEq/L (3.5-5.1); Sodium 138 mEq/L (136-145); eGFR For African Americans > 60 (> 60); eGFR For Non-African Americans > 60 (> 60)
[2021-01-29] MEDS: *HR* Heparin 5,000 UNIT/ML VIAL SQ SCH ×3 (05:28→20:29)
[2021-01-29] MEDS: Ketorolac 15 MG/ML VIAL IVP SCH ×4 (05:28→23:05)
[2021-01-29] MEDS: 0.9 % Sodium Chloride 1,000 ML IVC SCH ×3 (05:30→18:35)
[2021-01-29] MEDS ORDERED: Aspirin Enteric Coated 81 MG Tablet PO SCH (09:00)
[2021-01-29] MEDS: Gabapentin 300 MG CAPSULE PO SCH ×3 (09:02→20:22)
[2021-01-29] MEDS: *HR* Amiodarone 200 MG TABLET PO SCH (09:02)
[2021-01-29] MEDS: Pantoprazole 40 MG VIAL IVP SCH (09:04)
[2021-01-29] MEDS ORDERED: Metoclopramide 10 MG/2 ML VIAL IVP PRN (11:42)
[2021-01-30] MEDS: Ipratropium/Albuterol Neb 3 ML IH SCH ×6 (03:49→23:27)
[2021-01-30 03:51] LABS: Hematocrit 32.7 % (35.3-44.9); Mean Corpuscular HGB Conc 33.6 g/dL (31.6-35.5); Mean Corpuscular Hemoglobin 32.3 pg (28.0-33.3); Mean Corpuscular Volume 95.9 fL (83.0-100.0); Mean Platelet Volume 10.1 fL (9.4-12.4); Platelet Count 200 K/mcL (140-400); Red Blood Count 3.41 M/mcL (3.82-4.97); Red Cell Distribution Width 14.4 % (11.5-14.5); White Blood Count 15.6 K/mcL (4.3-11.1)
[2021-01-30] MEDS: Ketorolac 15 MG/ML VIAL IVP SCH ×4 (05:01→23:04)
[2021-01-30] MEDS: *HR* Heparin 5,000 UNIT/ML VIAL SQ SCH ×3 (05:02→21:04)
[2021-01-30] MEDS: 0.9 % Sodium Chloride 1,000 ML IVC SCH (05:36)
[2021-01-30 06:15] LABS: BUN/Creatinine Ratio 42 (6-26); Blood Urea Nitrogen 29 mg/dL (8-23); Calcium 8.8 mg/dL (8.6-10.3); Carbon Dioxide 26 mEq/L (23-29); Chloride 106 mEq/L (98-107); Glucose 113 mg/dL (70-105); Magnesium 2.8 mg/dL (1.6-2.6); Osmolality,Calculated 291 (280-300); Phosphorous 3.8 mg/dL (2.7-4.5); Potassium 5.1 mEq/L (3.5-5.1); Sodium 137 mEq/L (136-145); eGFR For African Americans > 60 (> 60); eGFR For Non-African Americans > 60 (> 60)
[2021-01-30] MEDS: *HR* Amiodarone 200 MG TABLET PO SCH (08:34)
[2021-01-30] MEDS: Gabapentin 300 MG CAPSULE PO SCH ×3 (08:35→19:40)
[2021-01-30] MEDS: Aspirin 81 MG TAB.CHEW PO SCH (08:35)
[2021-01-30] MEDS: Pantoprazole 40 MG VIAL IVP SCH (08:35)
[2021-01-30] MEDS ORDERED: Amiodarone Premix 150 MG/100 ML BAG IVPB ONE (12:15)
[2021-01-30] MEDS ORDERED: Amiodarone Premix 360 MG/200 ML BAG IVC ONE (12:30)
[2021-01-30] MEDS: Amiodarone Premix 360 MG/200 ML BAG IVC SCH (18:15)
[2021-01-31] MEDS: Ipratropium/Albuterol Neb 3 ML IH SCH ×6 (03:39→23:23)
[2021-01-31 04:45] LABS: BUN/Creatinine Ratio 69 (6-26); Blood Urea Nitrogen 45 mg/dL (8-23); Calcium 8.2 mg/dL (8.6-10.3); Carbon Dioxide 23 mEq/L (23-29); Chloride 105 mEq/L (98-107); Glucose 170 mg/dL (70-105); Magnesium 2.6 mg/dL (1.6-2.6); Osmolality,Calculated 294 (280-300); Potassium 4.7 mEq/L (3.5-5.1); Sodium 134 mEq/L (136-145); eGFR For African Americans > 60 (> 60); eGFR For Non-African Americans > 60 (> 60)
[2021-01-31] MEDS: Ketorolac 15 MG/ML VIAL IVP SCH (05:03)
[2021-01-31] MEDS: *HR* Heparin 5,000 UNIT/ML VIAL SQ SCH ×3 (05:03→21:07)
[2021-01-31] MEDS: Amiodarone Premix 360 MG/200 ML BAG IVC SCH (05:22)
[2021-01-31] MEDS: Pantoprazole 40 MG VIAL IVP SCH (08:18)
[2021-01-31] MEDS: Aspirin 81 MG TAB.CHEW PO SCH (08:19)
[2021-01-31] MEDS: Gabapentin 300 MG CAPSULE PO SCH ×3 (08:19→20:07)
[2021-01-31] MEDS: *HR* Amiodarone 200 MG TABLET PO SCH ×2 (08:19→20:07)
[2021-01-31] MEDS ORDERED: *HR* Amiodarone 200 MG TABLET PO ONE (12:15)
[2021-01-31] MEDS ORDERED: Ondansetron 4 MG/2 ML VIAL IVP PRN (13:00)
[2021-01-31 15:19] LABS: Hematocrit 28.9 % (35.3-44.9); Hemoglobin 9.4 g/dL (11.5-15.4); Mean Corpuscular HGB Conc 32.5 g/dL (31.6-35.5); Mean Corpuscular Hemoglobin 31.5 pg (28.0-33.3); Mean Platelet Volume 10.6 fL (9.4-12.4); Platelet Count 212 K/mcL (140-400); Red Blood Count 2.98 M/mcL (3.82-4.97); Red Cell Distribution Width 14.6 % (11.5-14.5); White Blood Count 14.9 K/mcL (4.3-11.1)
[2021-01-31] MEDS ORDERED: *HR* Amiodarone 200 MG TABLET PO SCH (21:00)
[2021-02-01] MEDS: Ipratropium/Albuterol Neb 3 ML IH SCH ×6 (03:41→23:23)
[2021-02-01] MEDS: *HR* Heparin 5,000 UNIT/ML VIAL SQ SCH ×3 (05:06→21:20)
[2021-02-01 06:20] LABS: Hematocrit 27.9 % (35.3-44.9); Hemoglobin 9.3 g/dL (11.5-15.4); Mean Corpuscular HGB Conc 33.3 g/dL (31.6-35.5); Mean Corpuscular Hemoglobin 31.6 pg (28.0-33.3); Mean Corpuscular Volume 94.9 fL (83.0-100.0); Mean Platelet Volume 10.5 fL (9.4-12.4); Platelet Count 225 K/mcL (140-400); Red Blood Count 2.94 M/mcL (3.82-4.97); Red Cell Distribution Width 14.3 % (11.5-14.5); White Blood Count 12.4 K/mcL (4.3-11.1)
[2021-02-01 06:38] LABS: BUN/Creatinine Ratio 65 (6-26); Blood Urea Nitrogen 30 mg/dL (8-23); Calcium 8.5 mg/dL (8.6-10.3); Carbon Dioxide 29 mEq/L (23-29); Chloride 102 mEq/L (98-107); Glucose 123 mg/dL (70-105); Magnesium 2.1 mg/dL (1.6-2.6); Osmolality,Calculated 288 (280-300); Phosphorous 1.6 mg/dL (2.7-4.5); Potassium 5.1 mEq/L (3.5-5.1); Sodium 135 mEq/L (136-145); eGFR For African Americans > 60 (> 60); eGFR For Non-African Americans > 60 (> 60)
[2021-02-01] MEDS: Gabapentin 300 MG CAPSULE PO SCH ×3 (08:10→21:20)
[2021-02-01] MEDS: *HR* Amiodarone 200 MG TABLET PO SCH ×2 (08:10→21:20)
[2021-02-01] MEDS: Multivit/Ca/Min/Fe/FA 1 TAB TABLET PO SCH (08:10)
[2021-02-01] MEDS: Aspirin 81 MG TAB.CHEW PO SCH (08:10)
[2021-02-01] MEDS: *HR* Digoxin 0.5 MG/2 ML AMPUL IVP SCH ×2 (17:29→23:46)
[2021-02-02] MEDS: Ipratropium/Albuterol Neb 3 ML IH SCH ×6 (03:35→23:55)
[2021-02-02] MEDS: *HR* Digoxin 0.5 MG/2 ML AMPUL IVP SCH (05:48)
[2021-02-02] MEDS: *HR* Heparin 5,000 UNIT/ML VIAL SQ SCH ×3 (05:48→21:00)
[2021-02-02 06:02] LABS: Hematocrit 30.8 % (35.3-44.9); Hemoglobin 10.1 g/dL (11.5-15.4); Mean Corpuscular HGB Conc 32.8 g/dL (31.6-35.5); Mean Corpuscular Hemoglobin 31.4 pg (28.0-33.3); Mean Corpuscular Volume 95.7 fL (83.0-100.0); Mean Platelet Volume 10.4 fL (9.4-12.4); Platelet Count 298 K/mcL (140-400); Red Blood Count 3.22 M/mcL (3.82-4.97); Red Cell Distribution Width 14.2 % (11.5-14.5); White Blood Count 13.1 K/mcL (4.3-11.1)
[2021-02-02 06:17] LABS: BUN/Creatinine Ratio 36 (6-26); Blood Urea Nitrogen 19 mg/dL (8-23); Calcium 8.8 mg/dL (8.6-10.3); Carbon Dioxide 32 mEq/L (23-29); Chloride 100 mEq/L (98-107); Glucose 120 mg/dL (70-105); Osmolality,Calculated 285 (280-300); Potassium 4.5 mEq/L (3.5-5.1); Sodium 136 mEq/L (136-145); eGFR For African Americans > 60 (> 60); eGFR For Non-African Americans > 60 (> 60)
[2021-02-02] MEDS: Aspirin 81 MG TAB.CHEW PO SCH (08:41)
[2021-02-02] MEDS: Gabapentin 300 MG CAPSULE PO SCH ×3 (08:42→19:37)
[2021-02-02] MEDS: Multivit/Ca/Min/Fe/FA 1 TAB TABLET PO SCH (08:42)
[2021-02-02] MEDS: *HR* Amiodarone 200 MG TABLET PO SCH ×2 (08:42→19:37)
[2021-02-02] MEDS ORDERED: Furosemide 20 MG TABLET PO PRN (13:43)
[2021-02-02] MEDS: Metoprolol XL (24 HR) Succ 25 MG TAB.ER.24H PO SCH (17:57)
[2021-02-02] MEDS: Sulfamethoxazole/Trimeth DS 1 EACH TABLET PO SCH (19:36)
[2021-02-02] MEDS: Sennosides/Docusate Sodium TABLET PO SCH (19:37)
[2021-02-02] MEDS: Famotidine 20 MG TABLET PO SCH (19:37)
[2021-02-03] MEDS: Ipratropium/Albuterol Neb 3 ML IH SCH ×5 (04:24→20:04)
[2021-02-03] MEDS: *HR* Heparin 5,000 UNIT/ML VIAL SQ SCH (06:13)
[2021-02-03 07:58] LABS: Hematocrit 31.8 % (35.3-44.9); Hemoglobin 10.6 g/dL (11.5-15.4); Mean Corpuscular HGB Conc 33.3 g/dL (31.6-35.5); Mean Corpuscular Hemoglobin 32.4 pg (28.0-33.3); Mean Corpuscular Volume 97.2 fL (83.0-100.0); Mean Platelet Volume 10.7 fL (9.4-12.4); Platelet Count 345 K/mcL (140-400); Red Blood Count 3.27 M/mcL (3.82-4.97); Red Cell Distribution Width 14.1 % (11.5-14.5); White Blood Count 13.7 K/mcL (4.3-11.1)
[2021-02-03] MEDS: *HR* Amiodarone 200 MG TABLET PO SCH ×2 (08:02→19:32)
[2021-02-03] MEDS: Aspirin 81 MG TAB.CHEW PO SCH (08:02)
[2021-02-03] MEDS: Sennosides/Docusate Sodium TABLET PO SCH ×2 (08:03→19:32)
[2021-02-03] MEDS: Sulfamethoxazole/Trimeth DS 1 EACH TABLET PO SCH ×2 (08:03→19:33)
[2021-02-03] MEDS: Gabapentin 300 MG CAPSULE PO SCH ×3 (08:03→19:32)
[2021-02-03] MEDS: Metoprolol XL (24 HR) Succ 25 MG TAB.ER.24H PO SCH (08:04)
[2021-02-03] MEDS: Famotidine 20 MG TABLET PO SCH ×2 (08:04→19:32)
[2021-02-03 08:11] LABS: BUN/Creatinine Ratio 29 (6-26); Blood Urea Nitrogen 17 mg/dL (8-23); Calcium 8.8 mg/dL (8.6-10.3); Carbon Dioxide 33 mEq/L (23-29); Chloride 99 mEq/L (98-107); Glucose 114 mg/dL (70-105); Magnesium 1.9 mg/dL (1.6-2.6); Osmolality,Calculated 282 (280-300); Potassium 4.8 mEq/L (3.5-5.1); Sodium 135 mEq/L (136-145); eGFR For African Americans > 60 (> 60); eGFR For Non-African Americans > 60 (> 60)
[2021-02-03] MEDS ORDERED: Furosemide 20 MG TABLET PO ONE ×2 (09:00→09:01)
[2021-02-03] MEDS ORDERED: *HR* Heparin 5,000 UNIT/ML VIAL SQ SCH (14:00)
[2021-02-03] MEDS: polyethylene glycoL 3350 17 GM POWD.PACK PO SCH (19:32)
[2021-02-03] MEDS: Apixaban 2.5 MG TABLET PO SCH (19:32)
[2021-02-04] MEDS: Ipratropium/Albuterol Neb 3 ML IH SCH ×7 (00:27→23:56)
[2021-02-04 06:50] LABS: Hematocrit 28.4 % (35.3-44.9); Hemoglobin 9.4 g/dL (11.5-15.4); Mean Corpuscular HGB Conc 33.1 g/dL (31.6-35.5); Mean Corpuscular Hemoglobin 31.8 pg (28.0-33.3); Mean Corpuscular Volume 95.9 fL (83.0-100.0); Platelet Count 330 K/mcL (140-400); Red Blood Count 2.96 M/mcL (3.82-4.97); White Blood Count 12.8 K/mcL (4.3-11.1)
[2021-02-04] MEDS: *HR* Amiodarone 200 MG TABLET PO SCH ×2 (07:16→09:07)
[2021-02-04] MEDS: Sennosides/Docusate Sodium TABLET PO SCH ×2 (07:16→22:01)
[2021-02-04] MEDS: Metoprolol XL (24 HR) Succ 25 MG TAB.ER.24H PO SCH (07:17)
[2021-02-04] MEDS: Gabapentin 300 MG CAPSULE PO SCH ×3 (07:17→22:01)
[2021-02-04] MEDS: Famotidine 20 MG TABLET PO SCH ×2 (07:17→22:02)
[2021-02-04] MEDS: polyethylene glycoL 3350 17 GM POWD.PACK PO SCH (07:17)
[2021-02-04] MEDS: Aspirin 81 MG TAB.CHEW PO SCH (07:17)
[2021-02-04] MEDS: Sulfamethoxazole/Trimeth DS 1 EACH TABLET PO SCH ×2 (07:17→22:02)
[2021-02-04] MEDS: Apixaban 2.5 MG TABLET PO SCH (07:17)
[2021-02-04 07:23] LABS: BUN/Creatinine Ratio 28 (6-26); Blood Urea Nitrogen 15 mg/dL (8-23); Calcium 8.3 mg/dL (8.6-10.3); Carbon Dioxide 29 mEq/L (23-29); Chloride 98 mEq/L (98-107); Glucose 102 mg/dL (70-105); Magnesium 1.8 mg/dL (1.6-2.6); Osmolality,Calculated 277 (280-300); Potassium 4.6 mEq/L (3.5-5.1); Sodium 133 mEq/L (136-145); eGFR For African Americans > 60 (> 60); eGFR For Non-African Americans > 60 (> 60)
[2021-02-04] MEDS: Apixaban 5 MG TABLET PO SCH ×2 (09:07→22:02)
[2021-02-04] MEDS: Furosemide 20 MG TABLET PO SCH (09:20)
[2021-02-05] MEDS: Ipratropium/Albuterol Neb 3 ML IH SCH ×6 (03:54→23:40)
[2021-02-05 05:51] LABS: Hematocrit 27.4 % (35.3-44.9); Mean Corpuscular HGB Conc 32.8 g/dL (31.6-35.5); Mean Corpuscular Hemoglobin 31.5 pg (28.0-33.3); Mean Corpuscular Volume 95.8 fL (83.0-100.0); Mean Platelet Volume 10.1 fL (9.4-12.4); Platelet Count 385 K/mcL (140-400); Red Blood Count 2.86 M/mcL (3.82-4.97); Red Cell Distribution Width 14.1 % (11.5-14.5)
[2021-02-05 06:09] LABS: BUN/Creatinine Ratio 34 (6-26); Blood Urea Nitrogen 20 mg/dL (8-23); Carbon Dioxide 32 mEq/L (23-29); Chloride 95 mEq/L (98-107); Glucose 116 mg/dL (70-105); Magnesium 2.1 mg/dL (1.6-2.6); Osmolality,Calculated 274 (280-300); Potassium 4.3 mEq/L (3.5-5.1); Sodium 130 mEq/L (136-145); eGFR For African Americans > 60 (> 60); eGFR For Non-African Americans > 60 (> 60)
[2021-02-05] MEDS: Metoprolol XL (24 HR) Succ 25 MG TAB.ER.24H PO SCH (08:03)
[2021-02-05] MEDS: Aspirin 81 MG TAB.CHEW PO SCH (08:03)
[2021-02-05] MEDS: Sennosides/Docusate Sodium TABLET PO SCH ×2 (08:03→20:53)
[2021-02-05] MEDS: *HR* Amiodarone 200 MG TABLET PO SCH (08:04)
[2021-02-05] MEDS: Sulfamethoxazole/Trimeth DS 1 EACH TABLET PO SCH ×2 (08:04→20:54)
[2021-02-05] MEDS: Apixaban 5 MG TABLET PO SCH (08:04)
[2021-02-05] MEDS: polyethylene glycoL 3350 17 GM POWD.PACK PO SCH (08:05)
[2021-02-05] MEDS: Gabapentin 300 MG CAPSULE PO SCH ×3 (08:05→20:54)
[2021-02-05] MEDS: Furosemide 20 MG TABLET PO SCH (08:05)
[2021-02-05] MEDS: Famotidine 20 MG TABLET PO SCH ×2 (08:05→20:53)
[2021-02-05] MEDS: Ondansetron 4 MG/2 ML VIAL IVP PRN ×2 (12:24→19:21)
[2021-02-06] MEDS: Ipratropium/Albuterol Neb 3 ML IH SCH ×6 (03:21→23:39)
[2021-02-06] MEDS: *HR* Amiodarone 200 MG TABLET PO SCH (09:20)
[2021-02-06] MEDS: Aspirin 81 MG TAB.CHEW PO SCH (09:20)
[2021-02-06] MEDS: Famotidine 20 MG TABLET PO SCH ×2 (09:20→21:04)
[2021-02-06] MEDS: Sennosides/Docusate Sodium TABLET PO SCH ×2 (09:20→21:04)
[2021-02-06] MEDS: polyethylene glycoL 3350 17 GM POWD.PACK PO SCH (09:21)
[2021-02-06] MEDS: Sulfamethoxazole/Trimeth DS 1 EACH TABLET PO SCH ×2 (09:21→21:03)
[2021-02-06] MEDS: Metoprolol XL (24 HR) Succ 25 MG TAB.ER.24H PO SCH (09:21)
[2021-02-06] MEDS: Gabapentin 300 MG CAPSULE PO SCH ×3 (09:21→21:03)
[2021-02-06] MEDS: Ondansetron 4 MG/2 ML VIAL IVP PRN (09:22)
[2021-02-06] MEDS ORDERED: *HR* Promethazine 25 MG/ML VIAL IM PRN (12:55)
[2021-02-07] MEDS: Ipratropium/Albuterol Neb 3 ML IH SCH ×6 (03:35→23:43)
[2021-02-07] MEDS ORDERED: Mag Hydrox/Al Hydrox/Simeth 30 ML UDC PO PRN (08:42)
[2021-02-07] MEDS: Ondansetron 4 MG/2 ML VIAL IVP PRN ×2 (08:49→18:13)
[2021-02-07] MEDS: Aspirin 81 MG TAB.CHEW PO SCH (10:00)
[2021-02-07] MEDS: polyethylene glycoL 3350 17 GM POWD.PACK PO SCH ×2 (10:00→20:01)
[2021-02-07] MEDS: Sennosides/Docusate Sodium TABLET PO SCH ×2 (10:01→20:02)
[2021-02-07] MEDS: Gabapentin 300 MG CAPSULE PO SCH ×3 (10:01→20:02)
[2021-02-07] MEDS: Metoprolol XL (24 HR) Succ 25 MG TAB.ER.24H PO SCH (10:01)
[2021-02-07] MEDS: Famotidine 20 MG TABLET PO SCH ×2 (10:01→20:02)
[2021-02-07] MEDS: *HR* Amiodarone 200 MG TABLET PO SCH (10:01)
[2021-02-07] MEDS: Sulfamethoxazole/Trimeth DS 1 EACH TABLET PO SCH ×2 (10:01→20:02)
[2021-02-08] MEDS: Ipratropium/Albuterol Neb 3 ML IH SCH ×6 (03:58→23:57)
[2021-02-08] MEDS: Ondansetron 4 MG/2 ML VIAL IVP PRN (05:44)
[2021-02-08] MEDS: polyethylene glycoL 3350 17 GM POWD.PACK PO SCH ×2 (07:24→20:01)
[2021-02-08] MEDS: Sennosides/Docusate Sodium TABLET PO SCH ×2 (07:25→20:01)
[2021-02-08] MEDS: Famotidine 20 MG TABLET PO SCH ×2 (07:25→20:01)
[2021-02-08] MEDS: Gabapentin 300 MG CAPSULE PO SCH ×3 (07:25→20:01)
[2021-02-08] MEDS: Sulfamethoxazole/Trimeth DS 1 EACH TABLET PO SCH ×2 (07:26→20:01)
[2021-02-08] MEDS: Metoprolol XL (24 HR) Succ 25 MG TAB.ER.24H PO SCH (07:26)
[2021-02-08] MEDS: *HR* Amiodarone 200 MG TABLET PO SCH (07:26)
[2021-02-08] MEDS: Aspirin 81 MG TAB.CHEW PO SCH (07:29)
[2021-02-09] MEDS: Ipratropium/Albuterol Neb 3 ML IH SCH ×5 (04:03→20:06)
[2021-02-09] MEDS: Ondansetron 4 MG/2 ML VIAL IVP PRN ×2 (06:30→16:01)
[2021-02-09] MEDS: *HR* Amiodarone 200 MG TABLET PO SCH (08:06)
[2021-02-09] MEDS: Sulfamethoxazole/Trimeth DS 1 EACH TABLET PO SCH (08:07)
[2021-02-09] MEDS: Metoprolol XL (24 HR) Succ 25 MG TAB.ER.24H PO SCH (08:07)
[2021-02-09] MEDS: Gabapentin 300 MG CAPSULE PO SCH (08:07)
[2021-02-09] MEDS: Sennosides/Docusate Sodium TABLET PO SCH ×2 (08:07→20:29)
[2021-02-09] MEDS: polyethylene glycoL 3350 17 GM POWD.PACK PO SCH ×2 (08:08→20:30)
[2021-02-09] MEDS: Famotidine 20 MG TABLET PO SCH ×2 (08:08→20:29)
[2021-02-09] MEDS: Aspirin 81 MG TAB.CHEW PO SCH (08:10)
[2021-02-09 19:40] VITALS: BP 110/57
== END 2021-02-09 21:05 | disposition other institution (70) | DRG 163 ==
LOC: SAMDAY 09:24 → ICNU 15:51 → 2NNU 02-04 08:57
PROVIDERS: ADMIT Thoracic Surgery (Cardiothoracic Vascular Surgery); ATTEND Thoracic Surgery (Cardiothoracic Vascular Surgery)